=== PATIENT | female | born 1990 ===

== ENCOUNTER 2023-10-05 14:54 | Inpatient (IN) | payer OTHER ==
[2023-10-05] VITALS (27 sets, daily range): BP systolic 121–176; BP diastolic 61–90; PULSE 73–95; TEMP 97.8–98
[~2023-10-05] VITALS: Ht 170.2 cm; Wt 126.4 kg
--- NOTE | 2023-10-05 15:00 | NUR ---
1500PT AMBULATORY TO UNIT WITH SPOUSE FOR POSSIBLE SROM. PT CHANGED INTO GOWN. PT COMFORTABLE IN BED. 1505THIS RN AT BEDSIDE TO PLACE TOCO AND EFM. EFM TRACING CAT I. PT VITAL SIGNS STABLE. 1510SVE AT THIS TIME PER THIS RN. /-3. CERVIX POSTERIOR. AMNITRACE TAKEN AT THIS TIME. AMNITRACE POSITIVE. PT RUPTURED. 1515THIS RN AND PT DISCUSS WHAT HAS BEEN GOING ON. PT STATES SHE WOKE UP THIS MORNING AROUND 0315. PT STATES SHE USED THE BATHROOM AND THINKS SHE FELT A GUSH AT THIS TIME. PT STATES SHE HAS FELT CTX SINCE SHE WOKE UP AT 0315. SHE STATES SHE HAS FELT CTX ALL DAY, ABOUT 15 MINUTES APART. SHE STATES HAS FELT THE OCCASIONAL LEAKING OF FLUID ALL DAY. SHE PUT ON A PAD ON THE WAY HERE AND STATES THERE WAS SOME PINKISH TINGED FLUID PRESENT ON THE PAD. PT STATES SHE HAD AN OB APPIONTMENT ON SATURDAY, AND HER SVE THEN WAS 2 CM DILATED, CERVIX SOFT, AND -[address] BEVERLEY NOTIFIED AT THIS TIME. DR LOWERY GAVE ORDERS TO ADMIT, PT CAN HAVE EPIDURAL WHENEVER, AND GAVE AN ORDER FOR PITOCIN NEEDED. 1530IV STARTED AT THIS TIME.
[2023-10-05] MEDS ORDERED: LR 1,000 ML IV SCH (15:30)
[2023-10-05] MEDS ORDERED: LR & Oxytocin 500 ML IV SCH (15:30)
[2023-10-05 16:26] LABS: BASO % 0.3 % (0.0-2.0); EOS # 0.1 K/mm3 (0.0-0.7); EOS % 0.5 % (0.0-4.0); GRAN # 10.7 K/mm3 (1.4-6.5); GRAN % 74.7 % (42.2-75.2); HEMATOCRIT 37.7 % (37.0-47.0); HEMOGLOBIN 12.8 g/dl (12.5-16.0); LYMPH # 2.3 K/mm3 (1.2-3.4); LYMPH % 16.3 % (20.0-51.0); MEAN CELL VOLUME 87 fl (80.0-100.0); MEAN CORPUSCULAR HEMOGLOBIN 29 pg (27-31); MEAN CORPUSCULAR HGB CONC 34 g/dl (33.0-37.0); MEAN PLATELET VOLUME 10.5 fl (7.4-10.4); MONO # 1.1 K/mm3 (0.1-0.6); MONO % 7.6 % (1.7-9.3); PLATELET COUNT 280 K/mm3 (130-400); RED BLOOD COUNT 4.35 M/mm3 (4.10-5.30)
--- NOTE | 2023-10-05 16:30 | NUR ---
SVE AT THIS TIME PER THIS RN. /-2
--- NOTE | 2023-10-05 17:00 | NUR ---
PITOCIN STARTED AT THIS TIME
[2023-10-05] MEDS ORDERED: NOVOLIN N100 UNIT/1 SQ (18:35)
[2023-10-05] MEDS ORDERED: GLUCOPHAGE1000 MG PO (18:37)
[2023-10-05] MEDS ORDERED: PRENATAL TABLET PO (18:37)
--- NOTE | 2023-10-05 18:50 | NUR ---
Pt visibly uncomfortable with contractions. Requesting epidural at this time. Zeenat Aguirre, AUTOMATION CONSULTANT notified, will come to bedside.
--- NOTE | 2023-10-05 19:15 | NUR ---
1910 - RAUL Lozoya at bedside. Pt positioned to sitting on edge of bed. Epidural procedure, risks, and benefits reviewed with patient, verbalized understanding. 191 - Difficulty tracing FHR due to maternal positioning. 191 - Single shot by RAUL Lozoya, pt denies adverse reactions. 1920 - Pt positioned to wedge left with pillow support. Reviewed safety precautions, bed in low and locked position, call light within reach. See anesthesia record.
[2023-10-05] MEDS ORDERED: ROPivacaine PF 0.2% 200 ML IV ONE (19:20)
[2023-10-05] MEDS ORDERED: Naloxone 0.4 MG/ML VIAL IV PRN (19:45)
[2023-10-05] MEDS ORDERED: ePHEDrine 50 MG/10 ML VIAL IV PRN (19:45)
[2023-10-05] MEDS ORDERED: Ondansetron 4 MG/2 ML VIAL IV PRN (19:45)
[2023-10-05] MEDS ORDERED: diphenhydrAMINE 50 MG/ML 1 ML VIAL IV PRN (19:45)
[2023-10-05] MEDS ORDERED: diphenhydrAMINE 25 MG CAP PO PRN (19:45)
--- NOTE | 2023-10-05 19:55 | NUR ---
Bangura catheter placed to dependent drainage. Clear, yellow urine out. Secured to leg with statlock. SVE 3-4/80/-3.
[2023-10-05] MEDS ORDERED: ceFAZolin 2 G IV SCH (22:45)
[2023-10-05] MEDS ORDERED: ceFAZolin 2 G in Water For Injection,Sterile 20 ML IV SCH (23:00)
[2023-10-06] VITALS (24 sets, daily range): BP systolic 126–173; BP diastolic 60–91; PULSE 78–117; TEMP 98.2–99
--- NOTE | 2023-10-06 02:55 | NUR ---
0230 - Pt called out stating she was feeling more pressure. SVE complete/+1. Late deceleration down to 90 bpm after exam for about 3 minutes, repositioned and returned to baseline of 130 bpm. 0240 - Bangura catheter removed, 600 blood tinged urine out. 0242 - Pt positioned into footplates. Educated on pushing techniques and positioning. Initial push at this time. 0248 - Pt pushing well with contraction. Encouraged to stop pushing, Dr. Peter called for delivery. 0251 - Bed broken down. Room set up for delivery. Nursery RN, Astrid Oleary at bedside. Dr. Peter gowned and gloved at perineum. 0255 - Spontaneous vaginal delivery of viable infant boy. Infant held at perineum by Dr. Peter for delayed cord clamping. Cord then clamped x2 and cut by SHEILA Loja. Infant placed to mothers abdomen, care of assumed to SHEILA Loja. Pitocin off. Cord blood obtained. 0259 - Spontaneous delivery of intact placenta. Pitocin restarted at 333 mL/hr. Fundal massage by this RN, small amount of bleeding noted. 1st degree perineal laceration repaired by Dr. Peter. Epidural off. 0305 - Pericare provided. New chux beneath patient. Ice pack to perineum. Pt repositioned in bed for comfort. See physician delivery note.
[2023-10-06] MEDS ORDERED: Loratadine 10 MG TAB PO PRN (03:30)
[2023-10-06] MEDS ORDERED: Magnes Hydrox (MOM) 80 MG/ML 30 ML CUP PO PRN (03:30)
[2023-10-06] MEDS ORDERED: Acetaminophen 500 MG TAB PO SCH ×2 (05:30→13:00)
[2023-10-06] MEDS ORDERED: Phenylephrine/Mineral Oil/Petrolatum 57 GM TUBE RC PRN (05:30)
[2023-10-06] MEDS ORDERED: Mag/Al Hydrox/Simeth Susp 30 ML CUP PO PRN (05:30)
[2023-10-06] MEDS ORDERED: Measles/Mumps/Rubella Virus Vaccine Live w Diluent 0.5 ML VIAL SQ SCH (05:30)
[2023-10-06] MEDS ORDERED: Naloxone 0.4 MG/ML VIAL IV PRN (05:30)
[2023-10-06] MEDS ORDERED: Witch Hazel 50% Pads Bulk TUB TP PRN (05:30)
[2023-10-06] MEDS ORDERED: Ibuprofen 800 MG TAB PO SCH (05:30)
[2023-10-06] MEDS ORDERED: oxyCODONE 5 MG TAB PO PRN (05:30)
[2023-10-06] MEDS ORDERED: metFORMIN XR 500 MG TAB PO SCH ×3 (07:00→08:00)
[2023-10-06] MEDS ORDERED: Sennosides/Docusate 8.6-50 MG TAB PO SCH (08:00)
--- NOTE | 2023-10-06 09:00 | NUR ---
PT REPORTS SHE IS STILL UNABLE TO FEEL "FEET" AND "BUTT OR VAGINA". ASSISTED PT TO STANDING POSITION AT EDGE OF BED, UNABLE TO WALK. NADINE STEADY ASSIST TO RESTROOM. LARGE VOID, 650 IN HAD, PT ALSO HAD URINE SOAKED HER BED AND UNDERWEAR, SHE WAS UNAWARE. BEDDING CHANGE AND NEW GOWN, UNDERWEAR, ICE PACK, PAD AND DEBORA CARE PROVIDED. PT STATES SHE IS UNABLE TO "FEEL HERSELF PEE." PT ASSISTED BACK TO BED VIA NADINE STEADY. LOCHIA WNL, FUNDUS FIRM. PT REPORTS MOTRIN AND TYLENOL IS HELPING WITH "BACK PAIN". PT EDUCATED IN FULL TO USE CALL LIGHT AND NOT AMBULATE INDEPENDENTLY YET AT THIS TIME. PT AGREEABLE TO POC.
--- NOTE | 2023-10-06 11:45 | NUR ---
THIS RN ENTERS ROOM TO ROUND ON PATIENT, FINDS PT INDEPENDENT IN RESTROOM ON TOILET. THIS RN QUESTIONS PT REGARDING STATUS OF LEGS BEING NUMB STILL EARLIER WITH LAST AMBULATION ATTEMPT. PT STATES "YES IM SORRY, I FORGOT TO RING MY CALL LIGHT, IM NOT NUMB ANYMORE." THIS RN REMAINS IN RESTROOM WITH PT AND ASSISTS WITH DEBORA CARE AND AMBULATION BACK TO BED. PT IS NOW STEADY ON HER FEET AND SAFE TO AMBULATE INDEPENDENTLY. LARGE CLEAR, YELLOW/BLOOD TINGED URINE NOTED IN TOILET/HAT. PT DENIES FURTHER NEEDS AT THIS TIME.
[2023-10-06] MEDS ORDERED: traZODone 50 MG TAB PO PRN (21:00)
[2023-10-07 07:35] VITALS: BP 122/74; PULSE 89; TEMP 98.9
--- NOTE | 2023-10-07 11:01 | NUR ---
Initial visit; Patient indisposed, Housekeeping Attendant spoke with her offering congratulations and God's blessings for the of their son. He thanked Housekeeping Attendant for stopping and wishing them well.
[2023-10-07] MEDS ORDERED: IBU800 M1 PO (12:42)
[2023-10-07 17:03] VITALS: BP 130/80; PULSE 85; TEMP 98.1
[2023-10-07 18:45] VITALS: BP 138/78; PULSE 87; TEMP 98.4
--- NOTE | 2023-10-07 19:45 | NUR ---
PT AND BROUGHT TO NURSERY FOR TORNADO WARNING.
--- NOTE | 2023-10-08 07:00 | NUR ---
Rests in bed, alert, denies any needs at this time.
[2023-10-08 08:15] VITALS: BP 145/86; PULSE 96; TEMP 97.8
--- NOTE | 2023-10-08 08:30 | NUR ---
Rests in bed, alert. Tylenol 1000 mg, ibuprofen 800 mg, glucaphage 500 mg, senokot given as ordered. States ready to go whenevery.
--- NOTE | 2023-10-08 08:40 | NUR ---
THIS RN ASSUMES CARE OF PT AND INFANT
--- NOTE | 2023-10-08 10:00 | NUR ---
PT VERBALLY UNDERSTANDING OF DISCHARGE INSTRUCTIONS FOR HERSELF AND INFANTS, SPOUSE ALSO VERBALLY AGREES. PT INFANT CHECKED SAFELY IN CAR SEAT PER THIS RN. PT AND INFANT BOTH STABLE, THIS RN WALKS WITH PT WHILE PT AMBLATES OFF UNIT TO CAR TO GO HOME, SPOUSE HOLDS IN CAR SEAT AND THIS RN WITNESSES INFANT SAFELY IN CAR.
== END 2023-10-08 10:00 | disposition home or self-care (01) | DRG 807 ==
LOC: LDRO 14:54 → LDR 15:29 → OB 10-06 06:00
PROVIDERS: Obstetrics & Gynecology; ADMIT Student in an Organized Health Care Education/Training Program
PROC: 10E0XZZ Delivery of Products of Conception, External Approach (ICD-10-PCS; principal; 2023-10-06)
PROC: 0HQ9XZZ Repair Perineum Skin, External Approach (ICD-10-PCS; 2023-10-06)
DX: O24.425 Gestational diabetes mellitus in childbirth, controlled by oral hypoglycemic drugs (principal); Z37.0 Single live birth; Z3A.39 39 weeks gestation of pregnancy; O99.214 Obesity complicating childbirth; O70.0 First degree perineal laceration during delivery
CPT/HCPCS: J0690; J2795; J7120